=== PATIENT | female | born 1960 | race Two or more races ===

== ENCOUNTER 2017-11-27 05:37 | Inpatient (IN) | payer OTHER ==
[~2017-11-27] VITALS: Ht 165.1 cm; Wt 88.9 kg
[2017-11-27] MEDS ORDERED: BUPIVACAINE 0.5 % PF 150 MG/30 ML VIAL ONE (05:46)
[2017-11-27] MEDS ORDERED: ANESTHESIA TRAY IN PYXIS 1 EA TRAY MC ONE (05:46)
[2017-11-27] MEDS ORDERED: KETOROLAC TROMETHAMINE INJ 30 MG/ML VIAL ONE (05:46)
[2017-11-27] MEDS ORDERED: BACITRACIN 50000 UNITS/VIAL ONE (05:47)
--- NOTE | 2017-11-27 06:15 | NUR ---
MS RN ADMIN NOTES PT WAS AMBULATORY TO THE FLOOR FOR PLANNED SURGERY. A/O X3, ABLE TO MAKE NEEDS KNOWN. NO SIGNS OF SOB OR DISTRESS, BREATHING EVENLY AND UNLABORED ON RA. IV ACCESS TO BE INSERTED IN OR. CONSENT FORMS COMPLETED AND CHECKLIST COMPLETED. MED RECON TO BE DONE. WILL ENDORSE TO DAYSHIFT
[2017-11-27 06:33] VITALS: BP 154/92
[2017-11-27] MEDS ORDERED: MIDAZOLAM HCL 2 MG/2ML VIAL ONE (06:37)
--- NOTE | 2017-11-27 06:50 | NUR ---
PT TAKEN DOWN TO OR FOR SURGERY
[2017-11-27 06:53] VITALS: BP 154/92
--- NOTE | 2017-11-27 07:45 | NUR ---
RN OPENING NOTES RECEIVED PT. PT IS CURRENTLY IN OR, RECEIVING RIGHT KNEE ARTHROPLASTY. PER MUSIC GRAPHER REPORT, PT ADMITTED TO UNIT AT 0610 AND WAS TAKEN FOR SURGERY AT 0650. ALL CONSENTS SIGNED, PLACED IN CHART AND TAKEN BY OR STAFF. PT SUBMITTED HOME MEDICATIONS FOR RECONCILIATION. WILL AWAIT RETURN FROM OR.
[2017-11-27] MEDS ORDERED: TRANEXAMIC ACID 3,000 MG in SODIUM CHLORIDE IRRIG SOLUTION 70 ML IR ONE (08:00)
[2017-11-27] MEDS ORDERED: HYDROMORPHONE INJ 2 MG/ML DISP.SYRIN ONE (08:52)
[2017-11-27] MEDS ORDERED: ZOFRAN 4mg/2ML IV PRN (09:00)
[2017-11-27] MEDS: ASPIRIN 325 MG TABLET PO SCH ×2 (09:00→17:00)
[2017-11-27] MEDS ORDERED: DULCOLAX 10 MG/SUPP.RECT RC PRN (09:00)
[2017-11-27] MEDS ORDERED: SENOKOT 8.6 MG TABLET PO PRN (09:00)
[2017-11-27] MEDS ORDERED: AMBIEN 5 MG TABLET PO PRN (09:00)
[2017-11-27] MEDS ORDERED: HYDROCODONE/APAP 5/325MG 1 EACH TABLET PO PRN (09:00)
--- NOTE | 2017-11-27 09:49 | NUR ---
RN NOTES PT RETURNED FROM SURGERY. POST OP ORDERS RECEIVED, ACKNOWLEDGED. MED RECON NURSE CONTACTED FOR RECONCILIATION OF HOME MEDICATIONS. VITAL SIGNS TAKEN. WILL CONTINUE TO MONITOR.
[2017-11-27] MEDS ORDERED: RANI150C4 PO (09:54)
[2017-11-27] MEDS ORDERED: ATOR20TA PO (09:54)
[2017-11-27] MEDS ORDERED: HYDR25TA4 PO (09:54)
[2017-11-27] MEDS ORDERED: OXYC-133 PO (09:54)
[2017-11-27] MEDS ORDERED: LOSA25TA13 PO (09:54)
[2017-11-27] MEDS ORDERED: METF500T4 PO (09:54)
[2017-11-27] MEDS ORDERED: oxyCODONE/APAP (5/325 MG) 1 UDTAB TABLET PO PRN (10:30)
--- NOTE | 2017-11-27 10:33 | NUR ---
RN NOTES AM ASA HELD. PT STILL APPEARS LETHARGIC FOLLOWING THE RIGHT KNEE SURGERY. WILL CONTINUE TO MONITOR.
[2017-11-27] MEDS: LOSARTAN POTASSIUM 25 MG TABLET PO SCH (11:00)
[2017-11-27] MEDS: HYDROMORPHONE INJ 0.5 MG/0.5 ML SYRINGE SQ PRN ×3 (11:56→19:54)
[2017-11-27] MEDS ORDERED: MENTHOL/CETYLPYRD (CEPACOL) 1 LOZ LOZENGE MM PRN (12:00)
[2017-11-27] MEDS ORDERED: oxyCODONE IR immediate release 5 MG PO PRN (12:00)
[2017-11-27] MEDS ORDERED: CLONIDINE HCL 0.1 MG TABLET PO PRN (12:00)
[2017-11-27] MEDS ORDERED: diphenhydrAMINE HCL 25 MG CAPSULE PO PRN (12:00)
[2017-11-27] MEDS ORDERED: MAGNESIUM HYDROXIDE 30 ML UDC PO PRN (12:00)
[2017-11-27] MEDS ORDERED: MAG HYDROX/AL HYDROX/SIMETH 30 ML UDC PO PRN (12:00)
[2017-11-27] MEDS ORDERED: PROMETHAZINE HCL 25 MG/ML AMPUL IM PRN (12:00)
[2017-11-27] MEDS ORDERED: NALOXONE HCL 0.4 MG/ML AMPUL IV PRN (12:00)
[2017-11-27] MEDS ORDERED: BISACODYL SUPP (10 MG) 10 MG/SUPP.RECT SUPP.RECT RC PRN (12:00)
[2017-11-27] MEDS ORDERED: ENOXAPARIN SODIUM 40 MG/0.4 ML DISP.SYRIN SQ SCH (12:30)
[2017-11-27] MEDS ORDERED: DEXTROSE 50%-WATER 50 ML DISP.SYRIN IV PRN (12:30)
[2017-11-27] MEDS: HYDROCHLOROTHIAZIDE 25 MG TABLET PO SCH (13:04)
[2017-11-27] MEDS: DOCUSATE SODIUM 100 MG CAPSULE PO SCH ×2 (13:05→17:00)
[2017-11-27] MEDS: IV D5/0.45 NACL 1,000 ML IV PRN ×2 (13:11→22:38)
[2017-11-27 13:49] LABS: BASOPHILS % (AUTO) 0.2 % (0.0-2.0); HEMATOCRIT 38 % (33-45); HEMOGLOBIN 12.8 g/dL (11.5-14.8); LYMPHOCYTES # (AUTO) 1.2 /CMM (0.8-4.8); LYMPHOCYTES % (AUTO) 12.6 % (20.0-44.0); MEAN CORPUSCULAR HEMOGLOBIN 30 PG (26.0-33.0); MEAN CORPUSCULAR HGB CONC 34 g/dl (31.0-36.0); MEAN CORPUSCULAR VOLUME 88 fL (82-100); MONOCYTES # (AUTO) 0.1 /CMM (0.1-1.30); MONOCYTES % (AUTO) 0.8 % (2.0-12.0); NEUTROPHILS # (AUTO) 8.4 /CMM (1.8-8.9); NEUTROPHILS % (AUTO) 86.4 % (43.0-81.0); PLATELET COUNT (AUTO) 285 /CMM (150-450); RDW COEFFICIENT OF VARIATION 14.9 (11.5-15.0); WHITE BLOOD COUNT (AUTO) 9.8 K/uL (4.3-11.0)
[2017-11-27 14:01] VITALS: BP 138/78
[2017-11-27 14:01] LABS: ALBUMIN 3.6 g/dL (3.4-5.0); BILIRUBIN,TOTAL 0.3 mg/dL (0.2-1.0); CALCIUM, SERUM 8.5 mg/dL (8.5-10.1); CREATININE 0.8 mg/dL (0.6-1.3); PHOSPHORUS 4.1 mg/dL (2.5-4.9); POTASSIUM 4.3 mmol/L (3.5-5.1); TOTAL PROTEIN, SERUM 7.7 g/dL (6.4-8.2)
[2017-11-27] MEDS: ANCEF 1 G in IV D5W 50 ML IV SCH ×2 (15:57→22:38)
[2017-11-27] MEDS: ONDANSETRON HCL/PF 4 MG/2 ML VIAL IVP PRN (15:57)
[2017-11-27 16:00] VITALS: BP 130/79
[2017-11-27] MEDS: METFORMIN 500 MG TABLET PO SCH (18:00)
[2017-11-27] MEDS: BLOOD SUGAR DIAGNOSTIC 1 EACH STRIP IN SCH ×2 (18:45→21:23)
--- NOTE | 2017-11-27 19:29 | NUR ---
RN CLOSING NOTES PT IN BED RESTING, AT BEDSIDE. PT EXPERIENCING SEVERAL BOUTS OF NAUSEA/VOMITING. PHENERGAN TO BE GIVEN IM, AWAITING DELIVERY FROM PHARMACY. SAFETY MEASURES IN PLACE. CALL LIGHT IN REACH. ENDORSED TO CORRECTIONAL SUBSTANCE ABUSE COUNSELOR FOR [place].
[2017-11-27 20:00] VITALS: BP 136/87
--- NOTE | 2017-11-27 20:00 | NUR ---
MS RN NOTE: PATIENT RESTING IN BED, NO ACUTE DISTRESS NOTED. FAMILY AT BEDSIDE. BREATHING EVEN AND UNLABORED, NO SOB NOTED. IV TO RIGHT HAND IN PLACE, RUNNING D5 1/2NS AT 125 ML/HR. PATIENT COMPLAINS OF PAIN 9/10 TO RIGHT KNEE, DILAUDID 1MG SQ GIVEN TO ABDOMEN PER MD ORDER. PATIENT ALSO COMPLAINS OF NAUSEA AND NOT RESOLVED WITH ZOFRAN GIVEN EARLIER. PHENERGAN 12.5MG IM GIVEN TO RIGHT DELTOID PER MD ORDER. DRESSING TO RIGHT KNEE IN PLACE, NO BLEEDING NOTED. PAREDES CATHETER IN PLACE, EMPTY AT THIS TIME. NO S/S OF HYPER/HYPOGLYCEMIA NOTED. BED LOCKED AND IN LOWEST POSITION, CALL LIGHT IN REACH. WILL CONTINUE TO MONITOR.
[2017-11-27] MEDS: ATORVASTATIN 10 MG TABLET PO SCH (21:23)
[2017-11-27] MEDS: FAMOTIDINE (20 MG) 20 MG TABLET PO SCH (21:23)
--- NOTE | 2017-11-27 21:30 | NUR ---
MS RN NOTE: PATIENT BLOOD SUGAR LEVEL 187 MG/DL, PATIENT REFUSED INSULIN SINCE NOTE EATING WELL DUE TO NAUSEA. NO S/S OF HYPER/HYPOGLYCEMIA NOTED. WILL CONTINUE TO MONITOR.
[2017-11-28] MEDS: HYDROMORPHONE INJ 0.5 MG/0.5 ML SYRINGE SQ PRN ×6 (00:29→20:56)
--- NOTE | 2017-11-28 00:45 | NUR ---
MS RN NOTE: PATIENT COMPLAINS OF PAIN TO RIGHT KNEE 8/, DILAUDID 1MG SQ GIVEN TO ABDOMEN PER MD ORDER. WILL CONTINUE TO MONITOR.
--- NOTE | 2017-11-28 06:05 | NUR ---
MS RN NOTE: PATIENT RESTING IN BED, NO ACUTE DISTRESS NOTED. BREATHING EVEN AND UNLABORED, NO SOB NOTED. IV TO RIGHT HAND IN PLACE, RUNNING D5 1/2NS AT 125 ML/HR. BLOOD SUGAR LEVEL 174MG/DL, PATIENT REFUSES INSULIN SINCE STILL NOT EATING WELL DUE TO NAUSEA, NO S/S OF HYPER/HYPOGLYCEMIA NOTED. BED LOCKED AND IN LOWEST POSITION, CALL LIGHT IN REACH. WILL ENDORSE TO DAY NURSE TO CONTINUE TO MONITOR.
[2017-11-28 06:22] LABS: BASOPHILS % (AUTO) 0.1 % (0.0-2.0); HEMATOCRIT 33 % (33-45); HEMOGLOBIN 11.1 g/dL (11.5-14.8); LYMPHOCYTES # (AUTO) 2.1 /CMM (0.8-4.8); MEAN CORPUSCULAR HEMOGLOBIN 30 PG (26.0-33.0); MEAN CORPUSCULAR HGB CONC 34 g/dl (31.0-36.0); MEAN CORPUSCULAR VOLUME 89 fL (82-100); MONOCYTES # (AUTO) 0.8 /CMM (0.1-1.30); NEUTROPHILS # (AUTO) 8.6 /CMM (1.8-8.9); NEUTROPHILS % (AUTO) 74.9 % (43.0-81.0); PLATELET COUNT (AUTO) 252 /CMM (150-450); RDW COEFFICIENT OF VARIATION 14.9 (11.5-15.0); RED BLOOD CELL COUNT(AUTO) 3.75 MIL/uL (4.0-5.2); WHITE BLOOD COUNT (AUTO) 11.5 K/uL (4.3-11.0)
[2017-11-28] MEDS: BLOOD SUGAR DIAGNOSTIC 1 EACH STRIP IN SCH ×4 (06:35→21:09)
[2017-11-28 06:53] LABS: CALCIUM, SERUM 8.3 mg/dL (8.5-10.1); CREATININE 0.7 mg/dL (0.6-1.3); PHOSPHORUS 3.9 mg/dL (2.5-4.9); POTASSIUM 4.3 mmol/L (3.5-5.1)
--- NOTE | 2017-11-28 07:39 | NUR ---
MS/RN OPENING NOTE PATIENT IN BED IN STABLE CONDITION. A/O X 4, BENGALI SPEAKING. NO SIGNS OF ACUTE DISTRESS. COMPLAIN OF ITCHING AT THIS TIME, WILL ADMINISTER PRN BENADRYL, ALL NEEDS ATTENDED TO. CALL LIGHT WITHIN REACH. WILL CONTINUE TO MONITOR TO ENSURE SAFETY.
[2017-11-28 08:00] VITALS: BP 124/68
[2017-11-28] MEDS: ASPIRIN 325 MG TABLET PO SCH ×2 (08:01→17:13)
[2017-11-28] MEDS: FAMOTIDINE (20 MG) 20 MG TABLET PO SCH ×2 (08:01→21:09)
[2017-11-28] MEDS: HYDROCHLOROTHIAZIDE 25 MG TABLET PO SCH (08:01)
[2017-11-28] MEDS: LOSARTAN POTASSIUM 25 MG TABLET PO SCH (08:01)
[2017-11-28] MEDS: DOCUSATE SODIUM 100 MG CAPSULE PO SCH ×2 (08:01→17:13)
--- NOTE | 2017-11-28 08:01 | NUR ---
WOUND CARE CONSULT WOUND CARE RECEIVED CONSULT FOR S/P RIGHT KNEE ARTHROPLASTY. WOUND CARE WILL DEFER TO ORTHO AT THIS TIME WITH WOUND CARE ASSISTANCE IF REQUESTED. PATIENT WITH LYNNETTE AT 20.
[2017-11-28] MEDS: IV D5/0.45 NACL 1,000 ML IV PRN (08:08)
--- NOTE | 2017-11-28 12:59 | NUR ---
MS/RN DC PAREDES CATH S/P FC REMOVAL. TOLERATED WELL. PATIENT VOIDED AFTER. ALL NEEDS ATTENDED TO. CALL LIGHT WITHIN REACH. WILL CONTINUE TO MONITOR FOR FURTHER CHANGES AND TO ENSURE SAFETY.
[2017-11-28 16:00] VITALS: BP 125/63
[2017-11-28] MEDS: METFORMIN 500 MG TABLET PO SCH (17:13)
[2017-11-28] MEDS: ONDANSETRON HCL/PF 4 MG/2 ML VIAL IVP PRN (17:19)
--- NOTE | 2017-11-28 18:31 | NUR ---
MS/RN CLOSING NOTE PATIENT IN BED IN STABLE CONDITION. A/O X 3. NO SIGNS OF ACUTE DISTRESS. NO COMPLAIN OF PAIN OR DISCOMFORT. ALL NEEDS ATTENDED TO. CALL LIGHT WITHIN REACH. WILL ENDORSE TO NEXT SHIFT FOR CONTINUITY OF CARE.
--- NOTE | 2017-11-28 19:30 | NUR ---
RN NOTES Received pt sitting up in bed. Family at bedside. a/o x4, respirations are even and unlabored, not in any acute distress noted. Denies any pain at this time. No c/o SOB, chest pain, n/v. IV to right hand intact, dressing kept clean and dry. Safety measures in place. Bed is in its low and locked position. Instructed pt to use call light when assistance is needed, call light is left within reach. Will continue to monitor throughout shift.
[2017-11-28 20:00] VITALS: BP 127/70
[2017-11-28 20:29] VITALS: BP 127/70
[2017-11-28] MEDS: ATORVASTATIN 10 MG TABLET PO SCH (21:09)
--- NOTE | 2017-11-28 21:23 | NUR ---
Spoke with patient and , patient has a walker and commode that was provided. Her CPM was ordered to [facility] pending delivery. One call [facility] [phone] will contact patient and case finishing machine adjuster of local Homehealth provider once patient discharge. can provide ride on dc. Addendum: 11/28/17 at 2123 by VAUGHN HIGGINBOTHAM RN Amended: Links added.
[2017-11-29] MEDS: HYDROMORPHONE INJ 0.5 MG/0.5 ML SYRINGE SQ PRN ×2 (00:29→04:21)
[2017-11-29] MEDS: IV D5/0.45 NACL 1,000 ML IV PRN (05:26)
--- NOTE | 2017-11-29 05:30 | NUR ---
RN NOTES New insertion IV to left wrist #22. Pt tolerated procedure well.
--- NOTE | 2017-11-29 06:15 | NUR ---
RN NOTES ALL DUE MEDS GIVEN, NEEDS MET AND RENDERED. A/O X4, RESPIRATIONS ARE EVEN AND UNLABORED, NOT IN ANY ACUTE DISTRESS NOTED. C/O PAIN TO RIGHT KNEE D/T S/P RIGHT KNEE ARTHOPLASTY. ADMINISTERED DILAUDID AND NOTED TO BE EFFECTIVE. PT WAS SEEN AND EXAMINED BY DR. VO WITH NO NEW ORDERS AT THIS TIME. SAFETY MEASURES IN PLACE. BED IS IN ITS LOCKED AND LOWEST POSITION. INSTRUCTED PT TO USE CALL LIGHT WHEN ASSISTANCE IS NEEDED, CALL LIGHT IS LEFT WITHIN REACH.
[2017-11-29] MEDS: INSULIN REGULAR, HUMAN 100 UNIT/ML 3 ML VIAL SQ PRN (06:41)
[2017-11-29] MEDS: BLOOD SUGAR DIAGNOSTIC 1 EACH STRIP IN SCH ×4 (06:41→21:23)
--- NOTE | 2017-11-29 06:43 | NUR ---
RN NOTES BLOOD SUGAR 179. PT REFUSED 3 UNITS OF INSULIN. EXPLAINED TO THE PT THE RISKS AND BENEFITS OF INSULIN. PT STILL NOTED WITH REFUSAL. NO S/SX OF HYPO/HYPERGLYCEMIA NOTED AT THIS TIME. WILL ENDORSE TO NEXT SHIFT TO CONTINUE TO MONITOR.
[2017-11-29 08:00] VITALS: BP 118/66
--- NOTE | 2017-11-29 08:30 | NUR ---
ms rn received on bed, awake,alert,oriented x4,s/p right knee surgery w/ dressing dry and intactdenies pain at this time, all needs attended.
--- NOTE | 2017-11-29 09:40 | NUR ---
ms oliver breakfast served,due meds given, tolerated well.
[2017-11-29] MEDS: FAMOTIDINE (20 MG) 20 MG TABLET PO SCH ×2 (09:57→21:24)
[2017-11-29] MEDS: DOCUSATE SODIUM 100 MG CAPSULE PO SCH ×2 (09:57→17:33)
[2017-11-29] MEDS: ASPIRIN 325 MG TABLET PO SCH ×2 (09:57→17:33)
[2017-11-29] MEDS: HYDROCHLOROTHIAZIDE 25 MG TABLET PO SCH (09:58)
[2017-11-29] MEDS: LOSARTAN POTASSIUM 25 MG TABLET PO SCH (09:58)
[2017-11-29] MEDS: ONDANSETRON HCL/PF 4 MG/2 ML VIAL IVP PRN (11:08)
--- NOTE | 2017-11-29 12:00 | NUR ---
ms rn bs - 157 - refused coverage, no s/s of hyperglycemia.
--- NOTE | 2017-11-29 14:00 | NUR ---
ms rn was seen by pt, walked around w/ walker,tolerated well.
--- NOTE | 2017-11-29 15:00 | NUR ---
ms rn was seen by jing nagel mo new order at this time.
[2017-11-29] MEDS: oxyCODONE IR immediate release 5 MG PO PRN (15:52)
[2017-11-29 16:00] VITALS: BP 123/61
[2017-11-29] MEDS: METFORMIN 500 MG TABLET PO SCH (17:33)
--- NOTE | 2017-11-29 18:40 | NUR ---
ms rn no change in condition,all needs attended.
--- NOTE | 2017-11-29 19:30 | NUR ---
MS RN NOTES PATIENT RECEIVED RESTING INSIDE ROOM, AWAKE, ALERT AND ORIENTED. ABLE TO MAKE NEEDS KNOWN. VERBALLY RESPONSIVE AND RESPONDS TO VERBAL AND TACTILE STIMULI. PATIENT BREATHING EVEN AND UNLABORED. NO SOB OR ACUTE DISTRESS NOTED. FAMILY AT BEDSIDE.PATIENT CALM AND RELAXED. NO CHANGES IN LOC NOTED AT THIS TIME. WILL CONTINUE TO MONITOR. BED LOCKED AND IN LOW POSITION, BILATERAL UPPER SIDE RAILS UP AND LOCKED. CALL LIGHT WITHIN EASY REACH.
[2017-11-29 20:00] VITALS: BP 146/66
[2017-11-29] MEDS: ATORVASTATIN 10 MG TABLET PO SCH (21:24)
--- NOTE | 2017-11-29 21:24 | NUR ---
MS RN NOTES FSBS TAKEN WITH RESULT OF 107 MG/DL. DUE MEDICATIONS GIVEN AND TOLERATED WELL. PATIENT REMAINS CALM AND RELAXED. NO SOB OR ACUTE DISTRESS. WILL CONTINUE TO MONITOR
[2017-11-30] MEDS: TYLENOL 650 MG TABLET PO PRN ×2 (03:43→15:07)
--- NOTE | 2017-11-30 03:45 | NUR ---
MS RN NOTES PATIENT WITH C/O MILD HEADACHE WITH LEVEL OF 3/10. REQUESTED FOR TYLENOL. MEDICATION GIVEN ORDERED PRN. WILL CONTINUE TO MONITOR.
[2017-11-30] MEDS: IV D5/0.45 NACL 1,000 ML IV PRN (05:05)
[2017-11-30] MEDS: oxyCODONE IR immediate release 5 MG PO PRN ×3 (06:22→15:28)
--- NOTE | 2017-11-30 06:23 | NUR ---
RN NOTES DR. MAN CALLED AND INFORMED HIM THAT PT IS NOT COMPLAINING OF PAIN EVEN WE OFFERED HIM PAIN MEDICATION, PT EVEN ASKED FOR TYLENOL ONLY FOR HEADACHE. DR. MAN STILL WANTS ME TO GIVE OXY IR THIS MORNING. EXPLAINED IT TO THE PT. WELL TO HER WITH THE HELP OF TRACK LINER OPERATOR. PT AGREE TO TAKE OXY IR 5 MG BUT HALF ONLY (2.5 MG )
[2017-11-30] MEDS: BLOOD SUGAR DIAGNOSTIC 1 EACH STRIP IN SCH ×2 (06:35→11:52)
[2017-11-30] MEDS: INSULIN REGULAR, HUMAN 100 UNIT/ML 3 ML VIAL SQ PRN (06:36)
--- NOTE | 2017-11-30 06:37 | NUR ---
MS RN NOTES FSBS OBTAINED WITH RESULT OF 164 MG/DL. PATIENT WITH ORDER FOR INSULIN PER SLIDING SCALE. PATIENT VERBALIZED SHE DOES NOT WANT TO HAVE INSULIN. RISKS AND BENEFITS EXPLAINED BUT TO NO AVAIL. OFFERED X 3, PATIENT STRONGLY REFUSED. RESPECTED PATIENT RIGHTS. WILL CONTINUE TO MONITOR
[2017-11-30 06:42] VITALS: BP 114/63
--- NOTE | 2017-11-30 06:53 | NUR ---
MS RN NOTES PATIENT RESTING INSIDE ROOM, AWAKE, ALERT AND ORIENTED X 4. ABLE TO MAKE NEEDS KNOWN AND FOLLOW SIMPLE INSTRUCTIONS. BREATHING EVEN AND UNLABORED. NO SOB OR ACUTE DISTRESS NOTED AT THIS TIME. FAMILY AT BEDSIDE. PATIENT AFEBRILE, SKIN DRY AND WARM TO TOUCH. NO CHANGES IN LOC NOTED AT THIS TIME. PATIENT REMAINS CALM AND RELAXED. DRESSING IN PLACE ON RIGHT KNEE INTACT, NO BLEEDING NOTED, NO ODOR NOTED. IV SITE INTACT AND PATENT, NO SWELLING OR BLEEDING NOTED ON SITE. BED LOCKED AND IN LOW POSITION, BILATERAL UPPER SIDE RAILS UP AND LOCKED. ALL NURSING NEEDS ATTENDED AND MET. ALL DUE MEDICATIONS GIVEN AND TOLERATED WELL. PROVIDED WITH CALM, SAFE, HAZARD-FREE ENVIRONMENT. CALL LIGHT WITHIN EASY REACH. WILL ENDORSE TO INCOMING SHIFT
--- NOTE | 2017-11-30 07:41 | NUR ---
MS/RN OPENING NOTE PATIENT ALERT AND ORIENTED X4. RESPIRATION REGULAR AND UNLABORED. DENIES SOB, PAIN AT THIS TIME. RIGHT KNEE DRESSING INTACT. NO BLEEDING AND NO S/S INFECTION NOTED. LEFT WRIST G 20 PATENT AND NO S/S INFILTRATION NOTED. BED LOW AND LOCKED. SIDE RAILS UP X2. CALL LIGHT WITHIN REACH. WILL CONTINUE TO MONITOR.
[2017-11-30 08:00] VITALS: BP 114/57
[2017-11-30] MEDS: DOCUSATE SODIUM 100 MG CAPSULE PO SCH (08:40)
[2017-11-30] MEDS: FAMOTIDINE (20 MG) 20 MG TABLET PO SCH (08:40)
[2017-11-30] MEDS: ASPIRIN 325 MG TABLET PO SCH (08:40)
[2017-11-30 08:41] VITALS: BP 114/57
[2017-11-30] MEDS: HYDROCHLOROTHIAZIDE 25 MG TABLET PO SCH (08:41)
[2017-11-30] MEDS: LOSARTAN POTASSIUM 25 MG TABLET PO SCH (08:41)
--- NOTE | 2017-11-30 16:30 | NUR ---
MS/RN CLOSING NOTE PATIENT ALERT AND ORIENTED X4. RESPIRATION REGULAR AND UNLABORED. DENIES SOB, PAIN AT THIS TIME. THE PATIENT IN NO APPARENT DISTRESS. IV REMOVED. SKIN ASSESSED. WRIST BAND REMOVED. EDUCATED ABOUT DISCHARGED INSTRUCTION AND THE PATIENT VERBALIZED UNDERSTANDING. PER CORPORATE STRATEGY ASSOCIATE ROHAN DOUGLAS AND BEDSIDE COMMODE WILL BE DELIVERED HOME TODAY. PAIN MEDICATION PRESCRIPTION HANDED TO THE PATIENT AND EDUCATION PROVIDED. PATIENT VERBALIZED UNDERSTANDING. THE COPY OF THE PRESCRIPTION PLACED IN THE CHART. PATIENT LEFT THE HOSPITAL IN STABLE CONDITION. ASSISTED ALL THE WAY TO THE CAR. THE PATIENT WAS PICKED UP BY THE ON A PRIVATE CARE.
== END 2017-11-30 16:27 | disposition home health service (06) | DRG 470 ==
LOC: DS 05:37 → MED 06:07
PROVIDERS: ADMIT Specialist; ATTEND Specialist
DX: M17.11 Unilateral primary osteoarthritis, right knee (principal); E11.9 Type 2 diabetes mellitus without complications; I10 Essential (primary) hypertension; M22.41 Chondromalacia patellae, right knee; K21.9 Gastro-esophageal reflux disease without esophagitis; S83.281A Other tear of lateral meniscus, current injury, right knee, initial encounter; X58.XXXA Exposure to other specified factors, initial encounter; Y93.89 Activity, other specified; Y92.9 Unspecified place or not applicable; Y99.0 Civilian activity done for income or pay; E66.9 Obesity, unspecified; Z68.32 Body mass index [BMI] 32.0-32.9, adult; E78.5 Hyperlipidemia, unspecified; E78.00 Pure hypercholesterolemia, unspecified; R11.2 Nausea with vomiting, unspecified; Z88.5 Allergy status to narcotic agent
CPT/HCPCS: 36415; 80048-TC; 80053-TC; 80061-TC; 82962-TC; 83735-TC; 84100-TC; 85025-TC; 87081-TC; 88305-TC; 88311-TC; 94799-TC; 97110-TC; 97116-TC; 97530-TC; 97760-TC; A4217; A6253; A6402; C1713; J0690; J1100; J1170; J1650; J1815; J1885; J2250; J2405; J2550; J2704; J3490; J7060; L1830; Q0163; Z7610